=== PATIENT | male | born 1990 | race Caucasian/White ===

== ENCOUNTER 2021-11-18 18:11 | Emergency (ER) | payer OTHER ==
[2021-11-18 18:34] VITALS: BP 124/78; PULSE 83; TEMP 98.2; BMI 29.9
[2021-11-19 16:11] LABS: SARS-CoV-2 NAA Not Detected (Not Detected)
== END 2021-11-18 19:40 | disposition home or self-care (01) ==
LOC: JER 18:11
DX: B34.9 Viral infection, unspecified (principal)
CPT/HCPCS: 87804; 99283-25; C9803; U0003; U0005